=== PATIENT | female | born 2005 | race Caucasian/White ===

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

== ENCOUNTER → 2024-02-10 13:50 | Outpatient (BNVA) | payer MEDICAID, SELFPAY | PROVIDERS: PCP Registered Nurse; Visit Provider Nurse Practitioner Women's Health | DX: N92.6 Irregular menstruation, unspecified (principal) | CPT/HCPCS: 81025 ==

== ENCOUNTER → 2024-02-14 15:23 | Outpatient (BNVA) | payer MEDICAID, SELFPAY | PROVIDERS: PCP Registered Nurse; Visit Provider Nurse Practitioner Women's Health | DX: Z36.87 Encounter for antenatal screening for uncertain dates (principal) | CPT/HCPCS: 76801 ==

== ENCOUNTER → 2024-02-25 07:41 | Outpatient (BNVA) | payer MEDICAID, SELFPAY | PROVIDERS: PCP Registered Nurse; Visit Provider Nurse Practitioner Women's Health | DX: Z34.90 Encounter for supervision of normal pregnancy, unspecified, unspecified trimester (principal); I63.9 Cerebral infarction, unspecified | CPT/HCPCS: 80307; 81000; 85025; 86592; 86762; 86803; 86850; 86900; 87086; 87340; 87491; 87591; 87806 ==

== ENCOUNTER → 2024-03-08 13:11 | Outpatient (BNVA) | payer MEDICAID, SELFPAY | PROVIDERS: PCP Registered Nurse; Visit Provider Nurse Practitioner Family | DX: J02.9 Acute pharyngitis, unspecified (principal); J06.9 Acute upper respiratory infection, unspecified | CPT/HCPCS: 87880 ==

== ENCOUNTER → 2024-03-10 14:10 | Outpatient (BNVA) | payer MEDICAID, SELFPAY | PROVIDERS: PCP Registered Nurse; Visit Provider Obstetrics & Gynecology | DX: Z34.90 Encounter for supervision of normal pregnancy, unspecified, unspecified trimester (principal) | CPT/HCPCS: 81000; 87491; 87591 ==

== ENCOUNTER 2024-03-30 18:20 | Emergency (ER) | payer MEDICAID, SELFPAY ==
--- NOTE | 2024-03-30 18:23 | ECG_ITS ---
[facility] Test Date: 2024-03-30 Pat Name: Isela Bro Department: Room: Gender: Female [employer]: : 2005 Requested By: Noel Sommer Order Number: [id number] Kirstie MD: Lady Martines M.D. Measurements Intervals Leopold Rate: 116 P: 45 OK: 139 QRS: 83 QRSD: 77 T: 13 QT: 309 QTc: 430 Interpretive Statements SINUS TACHYCARDIA POSSIBLE LEFT ATRIAL ENLARGEMENT [-0.1mV P-WAVE IN V1/V2] NONSPECIFIC T-WAVE ABNORMALITY ABNORMAL RHYTHM ECG Compared to ECG 05/19/2018 08:10:55 T-wave abnormality now present Sinus rhythm no longer present Electronically Signed On 03-30-2024 23:07:37 CDT by Lady Martines M.D. [id number]
[2024-03-30 18:36] VITALS: BP 118/78; PULSE 114; TEMP 36.9; O2SAT 98; BMI 35.0
--- NOTE | 2024-03-30 19:21 | W.ED.HA ---
HPI - Headache General: Chief Complaint: Headache Stated Complaint: chest pain migraine Time Seen by Provider: 03/30/24 19:12 History of Present Illness: 18-year-old female comes in today for complaints of migraine headache and chest pain. Patient appears nontoxic. Patient reports a history of migraines, food allergies, alpha gal, and Lyme's disease. Patient is about [address] Mcginnis is patient's [employer]. Review of Systems General: Reports: 10 or more systems reviewed and unremarkable except in HPI and below PFSH ED PFSH: Medical History Anxiety used prn meds; has not used medication since Nov 2023 Cerebral vascular accident reports 3 separate episodes; the last one was [id number]; confirmed by CT at [facility], [facility] Allergy to alpha-gal Lyme disease (~2017) No pertinent past medical history neghx: htn,dm,thyroid,dvt/pe PCP: Jessica Surgical History No pertinent past surgical history Family History Mother Heart disease Stroke Grandfather Heart disease Grandmother Stroke Denies family history of Colon cancer Ovarian cancer Prostate cancer Diabetes Hyperlipidemia Breast cancer Hypertension Uterine cancer Thyroid disease Physical Exam Const: COMMON NORMALS: alert HENMT: COMMON NORMALS: normocephalic HEAD & SCALP: normocephalic Neck/C-Spine: COMMON NORMALS: full ROM Resp: COMMON NORMALS: normal respiratory effort and clear to auscultation bilaterally AUSCULTATION: clear to auscultation bilaterally Cardio: COMMON NORMALS: regular rate and regular rhythm RATE: regular rate RHYTHM: regular rhythm Back/Pelvis: COMMON NORMALS: thoracic and lumbar spine normal to inspection Neuro: SENSORIUM/ORIENTATION: Yes alert Skin: COMMON NORMALS: turgor normal GENERAL SKIN EXAM: turgor normal Course Vital Signs: Vital signs: Vital Signs Temperature 98.5 F 03/30/24 18:36 Pulse Rate 114 H 03/30/24 18:36 Blood Pressure 118/78 03/30/24 18:36 Pulse Oximetry 98 03/30/24 18:36 Oxygen Delivery Me thod Room Air 03/30/24 18:36 MDM - Headache Medical Decision Making 18-year-old female comes in today for complaints of headache with nausea. Patient also reports some chest discomfort. Patient denies any chest pain at this time but states that occasionally she will feel like she has some chest pain and will be noticed that patient has elevated blood pressure at her job site [employer] [employer]. Lungs are clear to auscultation. No edema is noted in extremities. Vital signs are normal. Differential diagnosis includes but not limited to anxiety about health, first trimester , migraine headache, anemia, vasculitis. Patient was given 10 mg of Reglan and 12-1/2 mg of Benadryl for headache. Patient did have improvement of headache and felt good to go home. CBC CMP were unremarkable. CRP and sed rate were mildly high but not significant of any abnormality. Urinalysis was not significant for infection. Reviewed exam with patient with recommendations for treatment and follow-up with primary care and [employer]. Patient reported understanding and agreed to plan. Patient was stable and discharged home. Lab Data 03/30/24 20:21 03/30/24 20:37 Laboratory Results WBC 10.49 10^3/uL (4.5-13.0) 03/30/24 20:21 RBC 4.61 10^6/uL (3.85-5.65) 03/30/24 20:21 Hgb 12.70 g/dL (12.4-14.8) 03/30/24 20:21 Hct 38.9 % (36-47) 03/30/24 20:21 MCV 84.4 fl (85-98) L 03/30/24 20:21 MCH 27.5 pg (27-33) 03/30/24 20:21 MCHC 32.6 g/dL (30-55) 03/30/24 20:21 RDW 13.1 % (12.1-15.1) 03/30/24 20:21 Plt Count 258 10^3/cmm (157-399) 03/30/24 20:21 MPV 10.2 fL (7.4-10.4) 03/30/24 20:21 Neut % (Auto) 69.2 % 03/30/24 20:21 Lymph % (Auto) 23.3 % 03/30/24 20:21 [place] % (Auto) 5.2 % 03/30/24 20:21 Eos % (Auto) 1.7 % 03/30/24 20:21 Baso % (Auto) 0.3 % 03/30/24 20:21 Neut # (Auto) 7.26 10^3/uL (1.8-8.0) 03/30/24 20:21 Lymph # (Auto) 2.4 10^3/uL (1.5-6.5) 03/30/24 20:21 [place] # (Auto) 0.6 10^3/uL (0.2-0.9) 03/30/24 20:21 Eos # (Auto) 0.2 10^3/uL (0.0-0.8) 03/30/24 20:21 Baso # (Auto) 0.0 10^3/uL (0.0-0.1) 03/30/24 20:21 Nucleated RBC % (auto) 0 % 03/30/24 20:21 Nucleated RBCs # 0.0 /100WBC 03/30/24 20:21 ESR 27 mm/hr (0-15) H 03/30/24 20:21 Sodium 138 mmol/L (136-145) 03/30/24 20:37 Potassium 3.7 mmol/L (3.5-5.1) 03/30/24 20:37 Chloride 107 mmol/L (98-107) 03/30/24 20:37 Carbon Dioxide 22 mmol/L (22-29) 03/30/24 20:37 Anion Gap 12.7 (5-19) 03/30/24 20:37 BUN 4 mg/dL (6-20) L 03/30/24 20:37 Creatinine 0.4 mg/dL (0.5-0.9) L 03/30/24 20:37 GFR Calculation 205.6 mL/min (90-130) H 03/30/24 20:37 Glucose 78 mg/dL (65-115) 03/30/24 20:37 Calculated Osmolality 282 mOsm/kg (285-295) L 03/30/24 20:37 Calcium 8.6 mg/dL (8.5-10.5) 03/30/24 20:37 Total Bilirubin 0.2 mg/dL (0.15-1.2) 03/30/24 20:37 AST 14 U/L (0-32) 03/30/24 20:37 ALT 24 U/L (0-33) 03/30/24 20:37 Alkaline Phosphatase 76 U/L (35-105) 03/30/24 20:37 C-Reactive Protein 13.9 mg/L (0.0-4.9) H 03/30/24 20:37 Total Protein 6.4 g/dL (6.6-8.7) L 03/30/24 20:37 Albumin 3.5 g/dL (3.5-5.2) 03/30/24 20:37 Globulin 2.9 g/dL (1.3-4.6) 03/30/24 20:37 Urine Color Yellow (Yellow) 03/30/24 20:52 Urine Appearance Cloudy (CLEAR) A 03/30/24 20:52 Urine pH 8 (5-7) H 03/30/24 20:52 Ur Specific [place] 1.015 (1.005-1.030) 03/30/24 20:52 Urine Protein Neg (Negative) 03/30/24 20:52 Urine Glucose (UA) Norm (Normal) 03/30/24 20:52 Urine Ketones Negative (Negative) 03/30/24 20:52 Urine Blood Neg (Negative) 03/30/24 20:52 Urine Nitrate Negative (Negative) 03/30/24 20:52 Urine Bilirubin Neg (Negative) 03/30/24 20:52 Prot Sulfosalicylic Acd Negative (Negative) 03/30/24 20:52 Urine Urobilinogen Neg mg/dL (Negative) 03/30/24 20:52 Ur Leukocyte Esterase Negative (Negative) 03/30/24 20:52 Urine RBC None /hpf (0-2) 03/30/24 20:52 Urine WBC None /hpf (0-5) 03/30/24 20:52 Ur Squamous Epith Cells 5-10 /hpf (0-5) H 03/30/24 20:52 Amorphous Sediment 3+ /hpf 03/30/24 20:52 Urine Bacteria Trace /hpf (NONE) 03/30/24 20:52 No radiology studies performed this visit Discharge Plan Discharge Patient Disposition: Home Clinical Impression: Dehydration Migraine Qualifiers: Migraine type: unspecified Status migrainosus presence: without status migrainosus Intractability: not intractable Qualified Code(s): G43.909 - Migraine, unspecified, not intractable, without status migrainosus Qualifiers: Weeks of gestation: 10 weeks Qualified Code(s): Z3A.10 - 10 weeks gestation of Condition: Stable Prescriptions: No Action No Known Home Medications Discharge Orders: Discharge ED (Routine); Ordered 03/30/24 Ordered By: Chad Mcdonald Referrals: Joyce Quiros FNP [Primary Care Provider] - Discharge Diet: Usual diet Discharge Activity: Increase activity as tolerated Patient Instructions: Migraine Headache (ED) Activity Restrictions/Additional Instructions: Drink plenty of water and fluids. Use acetaminophen for pain. Follow-up with primary care for further instructions. Return to ED for new concerns. Coding Level of Care Code ED Upper Inspector for Flaca Arceo
[2024-03-30] MEDS: metoclopramide 5 mg/mL SDV 2 mL 10 MG IVP (20:11)
[2024-03-30] MEDS: diphenhydrAMINE 50 mg/mL SDV 1mL 12.5 MG IVP (20:12)
[2024-03-30] MEDS: sodium chloride 0.9% 1,000 ML 999 ML IV (20:13)
[2024-03-30 20:27] LABS: Basophils % 0.3 %; Eosinophils # 0.2 10^3/uL (0.0-0.8); Eosinophils % 1.7 %; Hematocrit 38.9 % (36-47); Lymphocytes # 2.4 10^3/uL (1.5-6.5); Lymphocytes % 23.3 %; Mean Corpuscular HGB Conc 32.6 g/dL (30-55); Mean Corpuscular Hemoglobin 27.5 pg (27-33); Mean Corpuscular Volume 84.4 fl (85-98); Mean Platelet Volume 10.2 fL (7.4-10.4); Monocytes # 0.6 10^3/uL (0.2-0.9); Monocytes % 5.2 %; Neutrophils # 7.26 10^3/uL (1.8-8.0); Neutrophils % 69.2 %; Nucleated Red Blood Cells % 0 %; Platelet Count 258 10^3/cmm (157-399); Red Blood Count 4.61 10^6/uL (3.85-5.65); Red Cell Distribution Width 13.1 % (12.1-15.1); White Blood Count 10.49 10^3/uL (4.5-13.0)
[2024-03-30 20:35] LABS: Erythrocyte Sedimentation Rate 27 mm/hr (0-15)
[2024-03-30 21:05] LABS: Alanine Aminotransferase 24 U/L (0-33); Albumin Level 3.5 g/dL (3.5-5.2); Alkaline Phosphatase 76 U/L (35-105); Anion Gap 12.7 (5-19); Aspartate Amino Transferase 14 U/L (0-32); Blood Urea Nitrogen 4 mg/dL (6-20); C Reactive Protein 13.9 mg/L (0.0-4.9); Calcium 8.6 mg/dL (8.5-10.5); Carbon Dioxide 22 mmol/L (22-29); Chloride 107 mmol/L (98-107); Creatinine Clr Calc Pharmacy 240.5704; Globulin 2.9 g/dL (1.3-4.6); Glomerular Filtration Rate 205.6 mL/min (90-130); Glucose 78 mg/dL (65-115); Osmolality Calculated 282 mOsm/kg (285-295); Potassium 3.7 mmol/L (3.5-5.1); Sodium 138 mmol/L (136-145); Total Bilirubin 0.2 mg/dL (0.15-1.2); Total Protein 6.4 g/dL (6.6-8.7)
[2024-03-30 21:11] LABS: Add Urine Microscopic? YES; Bilirubin Urine Neg (Negative); Blood Urine Neg (Negative); Glucose Urine UA Norm (Normal); Ketones Urine Negative (Negative); Leukocyte Esterase Urine Negative (Negative); Nitrate Urine Negative (Negative); Protein Urine Neg (Negative); Specific Gravity, Urine 1.015 (1.005-1.030); Sulfosalicylic Acid Urine Negative (Negative); Urine Appearance Cloudy (CLEAR); Urine Color Yellow (Yellow); Urobilinogen Urine Neg (Negative); pH Urine 8 (5-7)
[2024-03-30 21:12] LABS: Add Urine Culture? No; Amorphous Sediment Urine 3+ /hpf; Bacteria Urine TRACE /hpf
[2024-03-30 21:50] VITALS: BP 110/83; PULSE 94; RESP 18; O2SAT 99
== END 2024-03-30 21:51 | disposition home or self-care (01) ==
PROVIDERS: Emergency Provider Nurse Practitioner Family; PCP Registered Nurse
DX: O26.891 Other specified pregnancy related conditions, first trimester (principal); G43.909 Migraine, unspecified, not intractable, without status migrainosus; E86.0 Dehydration; Z86.73 Personal history of transient ischemic attack (TIA), and cerebral infarction without residual deficits; Z3A.10 10 weeks gestation of pregnancy
CPT/HCPCS: 36415; 80053; 81001; 85025; 85651; 86140; 93005; 96374; 96375; 99285; J1200; J2765; J7030

== ENCOUNTER → 2024-04-10 08:19 | Outpatient (BNVA) | payer MEDICAID, SELFPAY | PROVIDERS: PCP Registered Nurse; Visit Provider Nurse Practitioner Women's Health | DX: Z34.90 Encounter for supervision of normal pregnancy, unspecified, unspecified trimester | CPT/HCPCS: 80307; 81000; 82105 ==

== ENCOUNTER → 2024-05-15 13:38 | Outpatient (BNVA) | payer MEDICAID, SELFPAY | PROVIDERS: PCP Registered Nurse; Visit Provider Obstetrics & Gynecology | DX: O09.899 Supervision of other high risk pregnancies, unspecified trimester (principal); Z3A.20 20 weeks gestation of pregnancy | CPT/HCPCS: 76805; 81000 ==

== ENCOUNTER → 2024-05-30 15:05 | Outpatient (BNVA) | payer MEDICAID, SELFPAY | PROVIDERS: PCP Registered Nurse; Visit Provider Nurse Practitioner Women's Health | DX: O09.899 Supervision of other high risk pregnancies, unspecified trimester (principal); Z3A.24 24 weeks gestation of pregnancy | CPT/HCPCS: 80307; 81000; 82950 ==